=== PATIENT | female | born 1945 | race Caucasian/White ===

== ENCOUNTER 2018-07-14 15:20 | Observation (INO) | payer OTHER ==
[2018-07-14 18:57] LABS: ADD MAN DIFF? NO
[2018-07-14] MEDS: ACETAMINOPHEN 325 MG TAB PO (19:02)
[2018-07-14] MEDS: CEFTRIAXONE 1 GM/50 ML (PMX) 50 ML IVPB (19:02)
[2018-07-14] MEDS: SODIUM CHLORIDE 0.9% 1L BAG IV* (19:03)
[2018-07-14 19:06] LABS: WHITE BLOOD COUNT 8.6 10^3/ul (4.8-10.8)
[2018-07-14 19:06] LABS: BASOPHILS % 0.3 % (0.0-2.0); EOSINOPHILS # 0.3 10^3/ul (0.0-0.5); HEMATOCRIT 42.7 % (37.0-47.0); HEMOGLOBIN 14.7 g/dl (12.0-16.0); LYMPHOCYTES # 1.2 10^3/ul (0.8-2.9); LYMPHOCYTES % 13.5 % (15.0-51.0); MEAN CORPUSCULAR HEMOGLOBIN 30.8 pg (29.0-33.0); MEAN CORPUSCULAR HGB CONC 34.4 g/dl (32.0-37.0); MEAN CORPUSCULAR VOLUME 89.5 fl (82.0-101.0); MEAN PLATELET VOLUME 9.5 fl (7.4-10.4); MONOCYTE # 0.5 10^3/ul (0.3-0.9); MONOCYTES % 5.7 % (0.0-11.0); NEUTROPHIL # 6.6 10^3/ul (1.6-7.5); NEUTROPHILS % 77.2 % (39.0-77.0); PLATELET COUNT 204 10^3/UL (140-415); RED BLOOD COUNT 4.77 10^6/ul (4.20-5.40); RED CELL DISTRIBUTION WIDTH 12.2 % (11.5-14.5)
[2018-07-14 19:13] LABS: ADD UMIC YES; UR ASCORBIC ACID 20 mg/dL (NEGATIVE); UR BILIRUBIN (Dip) NEGATIVE (NEGATIVE); UR BLOOD (Dip) 1+ mg/dL (NEGATIVE); UR CLARITY CLEAR (CLEAR); UR COLOR YELLOW (YELLOW); UR GLUCOSE (Dip) NEGATIVE (NEGATIVE); UR KETONES (Dip) NEGATIVE (NEGATIVE); UR LEUKOCYTE ESTERASE (Dip) 2+ Leu/ul (NEGATIVE); UR NITRITE (Dip) NEGATIVE (NEGATIVE); UR RBC 2 /HPF (0-5); UR SPECIFIC GRAVITY (Dip) 1.018 (1.003-1.030); UR SQUAMOUS EPITHELIAL CELL FEW /HPF (FEW); UR TOTAL PROTEIN (Dip) NEGATIVE (NEGATIVE); UR UROBILINOGEN (Dip) NEGATIVE (NEGATIVE); UR WBC 6 /HPF (0-5)
[2018-07-14 19:23] LABS: LACTIC ACID 2.1 mmol/L (0.5-2.0)
[2018-07-14 19:23] LABS: INR 0.98; PROTIME 13.1 Sec (11.9-14.9)
[2018-07-14 19:24] LABS: PARTIAL THROMBOPLASTIN TIME 32.6 Sec (25.0-35.0)
[2018-07-14 19:25] LABS: ALANINE AMINOTRANSFERASE 47 IU/L (13-69); ALBUMIN 4.4 g/dl (3.3-4.9); ALBUMIN/GLOBULIN RATIO 1.37; ALKALINE PHOSPHATASE 122 IU/L (42-121); ANION GAP 16 (8-16); ASPARTATE AMINO TRANSFERASE 36 IU/L (15-46); BILIRUBIN,INDIRECT 0.4 mg/dl (0-1.1); BILIRUBIN,TOTAL 0.4 mg/dl (0.2-1.3); BLOOD UREA NITROGEN 15 mg/dl (7-20); CARBON DIOXIDE 27 mmol/L (21-31); CHLORIDE 102 mmol/L (97-110); CREATININE 0.65 mg/dl (0.44-1.00); GLUCOSE 152 mg/dl (70-220); SODIUM 141 mmol/L (135-144); TOTAL PROTEIN 7.6 g/dl (6.1-8.1)
[2018-07-14 19:37] LABS: TROPONIN-I < 0.010 ng/ml (0.000-0.120)
[2018-07-14] MEDS: VANCOMYCIN 1 GM (PMX) 250 ML IVPB (20:33)
[2018-07-14 21:59] LABS: LACTIC ACID 1.7 mmol/L (0.5-2.0)
[2018-07-14] MEDS ORDERED: BISACODYL 10 MG SUPP PR (22:00)
[2018-07-14] MEDS ORDERED: ACETAMINOPHEN 325 MG TAB PO (22:00)
[2018-07-14] MEDS ORDERED: NACL 0.9% 3 ML SYG IV (22:00)
[2018-07-14] MEDS ORDERED: DOCUSATE SODIUM 100 MG CAP PO (22:00)
[2018-07-14] MEDS: SOD CHLORIDE 0.9% 1,000 ML IV (22:00)
[2018-07-14] MEDS ORDERED: MAGNESIUM HYDROXIDE 30ML CUP PO (22:00)
[2018-07-14] MEDS ORDERED: HYDROCODONE/APAP (5/325) TAB PO (22:00)
[2018-07-14] MEDS ORDERED: ONDANSETRON 4 MG INJ IV (22:00)
[2018-07-14 22:11] LABS: ETHANOL < 10.0 mg/dl
[2018-07-15 01:04] LABS: LACTIC ACID 1.6 mmol/L (0.5-2.0)
[2018-07-15 05:08] LABS: ADD MAN DIFF? NO
[2018-07-15 05:10] LABS: WHITE BLOOD COUNT 6.4 10^3/ul (4.8-10.8)
[2018-07-15 05:10] LABS: BASOPHILS % 0.5 % (0.0-2.0); EOSINOPHILS # 0.5 10^3/ul (0.0-0.5); EOSINOPHILS % 8.1 % (0.0-7.0); HEMATOCRIT 36.9 % (37.0-47.0); HEMOGLOBIN 12.5 g/dl (12.0-16.0); LYMPHOCYTES # 1.3 10^3/ul (0.8-2.9); LYMPHOCYTES % 20.3 % (15.0-51.0); MEAN CORPUSCULAR HEMOGLOBIN 30.9 pg (29.0-33.0); MEAN CORPUSCULAR HGB CONC 33.9 g/dl (32.0-37.0); MEAN CORPUSCULAR VOLUME 91.1 fl (82.0-101.0); MEAN PLATELET VOLUME 9.6 fl (7.4-10.4); MONOCYTE # 0.5 10^3/ul (0.3-0.9); MONOCYTES % 8.1 % (0.0-11.0); NEUTROPHILS % 62.8 % (39.0-77.0); PLATELET COUNT 185 10^3/UL (140-415); RED BLOOD COUNT 4.05 10^6/ul (4.20-5.40); RED CELL DISTRIBUTION WIDTH 12.6 % (11.5-14.5)
[2018-07-15 05:42] LABS: ALANINE AMINOTRANSFERASE 41 IU/L (13-69); ALBUMIN 3.2 g/dl (3.3-4.9); ALBUMIN/GLOBULIN RATIO 1.14; ALKALINE PHOSPHATASE 102 IU/L (42-121); ANION GAP 9 (8-16); ASPARTATE AMINO TRANSFERASE 26 IU/L (15-46); BILIRUBIN,INDIRECT 0.3 mg/dl (0-1.1); BILIRUBIN,TOTAL 0.3 mg/dl (0.2-1.3); BLOOD UREA NITROGEN 10 mg/dl (7-20); CARBON DIOXIDE 25 mmol/L (21-31); CHLORIDE 111 mmol/L (97-110); CREATININE 0.48 mg/dl (0.44-1.00); GLUCOSE 128 mg/dl (70-220); MAGNESIUM 2.1 mg/dl (1.7-2.5); PHOSPHORUS 2.6 mg/dl (2.5-4.9); POTASSIUM 3.8 mmol/L (3.5-5.1); SODIUM 141 mmol/L (135-144)
[2018-07-15] MEDS: PANTOPRAZOLE (EC) 40 MG TAB PO (05:52)
[2018-07-15] MEDS: SOD CHLORIDE 0.9% 1,000 ML IV ×2 (07:36→08:38)
[2018-07-15] MEDS: carBAMAZepine (XR) 100 MG TABSR PO (08:39)
[2018-07-15] MEDS: GABAPENTIN 100 MG CAP PO (08:39)
[2018-07-15] MEDS: ATENOLOL 50 MG TAB PO (08:41)
[2018-07-15] MEDS ORDERED: IOHEXOL 300MG/ML 150 ML BTL (12:10)
[2018-07-15] MEDS ORDERED: SOD CHLORIDE 0.9% 100 ML (12:10)
[2018-07-15] MEDS ORDERED: CEFTRIAXONE 1 GM/50 ML (PMX) 50 ML IVPB (18:00)
== END 2018-07-15 16:18 | disposition home or self-care (01) ==
LOC: E/R 15:20 → MS3 20:19
PROVIDERS: Internal Medicine
DX: K52.9 Noninfective gastroenteritis and colitis, unspecified (principal); N28.89 Other specified disorders of kidney and ureter; I10 Essential (primary) hypertension; E78.5 Hyperlipidemia, unspecified
CPT/HCPCS: 36415; 71045; 74170; 74176; 80053; 80307; 81001; 83605; 83735; 84100; 84484; 85025; 85610; 85730; 87040; 87086; 93005; 96374; 99291-25

== ENCOUNTER 2018-10-16 21:07 | Emergency (ER) | payer OTHER, MEDICAID ==
[2018-10-17 01:20] LABS: ADD MAN DIFF? NO
[2018-10-17] MEDS: ONDANSETRON 4 MG INJ IV (01:20)
[2018-10-17] MEDS: morphine 4 MG/ML VIAL IV (01:20)
[2018-10-17] MEDS: SOD CHLORIDE 0.9% 500 ML IV (01:20)
[2018-10-17 01:21] LABS: BASOPHIL # 0.1 10^3/ul (0.0-0.1); BASOPHILS % 0.9 % (0.0-2.0); EOSINOPHILS # 0.6 10^3/ul (0.0-0.5); HEMATOCRIT 38.6 % (37.0-47.0); HEMOGLOBIN 12.8 g/dl (12.0-16.0); LYMPHOCYTES # 2.4 10^3/ul (0.8-2.9); LYMPHOCYTES % 33.6 % (15.0-51.0); MEAN CORPUSCULAR HEMOGLOBIN 30.1 pg (29.0-33.0); MEAN CORPUSCULAR HGB CONC 33.2 g/dl (32.0-37.0); MEAN CORPUSCULAR VOLUME 90.8 fl (82.0-101.0); MONOCYTE # 0.5 10^3/ul (0.3-0.9); MONOCYTES % 6.5 % (0.0-11.0); NEUTROPHIL # 3.6 10^3/ul (1.6-7.5); NEUTROPHILS % 50.7 % (39.0-77.0); PLATELET COUNT 230 10^3/UL (140-415); RED BLOOD COUNT 4.25 10^6/ul (4.20-5.40); RED CELL DISTRIBUTION WIDTH 12.3 % (11.5-14.5)
[2018-10-17 01:41] LABS: ANION GAP 9 (5-13); BLOOD UREA NITROGEN 18 mg/dl (7-20); CALCIUM 9.6 mg/dl (8.4-10.2); CARBON DIOXIDE 24 mmol/L (21-31); CHLORIDE 104 mmol/L (97-110); CREATININE 0.91 mg/dl (0.44-1.00); GLUCOSE 111 mg/dl (70-220); INR 0.95; POTASSIUM 4.5 mmol/L (3.5-5.1); PROTIME 12.8 Sec (11.9-14.9); SODIUM 137 mmol/L (135-144)
[2018-10-17 01:42] LABS: PARTIAL THROMBOPLASTIN TIME 31.7 Sec (23.0-35.0)
[2018-10-17 01:53] LABS: TROPONIN-I < 0.012 ng/ml (0.000-0.120)
== END 2018-10-17 03:18 | disposition home or self-care (01) ==
LOC: E/R 21:07
DX: G50.0 Trigeminal neuralgia (principal); R40.2142 Coma scale, eyes open, spontaneous, at arrival to emergency department; R40.2362 Coma scale, best motor response, obeys commands, at arrival to emergency department; R40.2252 Coma scale, best verbal response, oriented, at arrival to emergency department; I10 Essential (primary) hypertension; Z85.528 Personal history of other malignant neoplasm of kidney; Z86.73 Personal history of transient ischemic attack (TIA), and cerebral infarction without residual deficits
CPT/HCPCS: 36415; 71045; 80048; 84484; 85025; 85610; 85730; 93005; 96374; 96375; 99285-25

== ENCOUNTER 2019-08-06 14:36 | Emergency (ER) | payer OTHER, MEDICAID ==
[2019-08-06] MEDS: MECLIZINE 12.5 MG TAB PO (15:56)
[2019-08-06] MEDS: ACETAMINOPHEN 325 MG TAB PO (15:56)
== END 2019-08-06 18:56 | disposition home or self-care (01) ==
LOC: E/R 14:36
DX: R42 Dizziness and giddiness (principal); I10 Essential (primary) hypertension; Z86.73 Personal history of transient ischemic attack (TIA), and cerebral infarction without residual deficits
CPT/HCPCS: 70450; 99284-25